=== PATIENT | male | born 1945 | race Caucasian/White ===

== ENCOUNTER 2019-04-04 10:30 | Outpatient (CLI) | payer MEDICARE ==
[~2019-04-04] VITALS: Ht 167.6 cm; Wt 102.3 kg
[2019-04-04 11:19] LABS: ANION GAP 7 mmol/L (5-15); CALCIUM 9.2 mg/dL (8.5-10.1); CHLORIDE 106 mmol/L (98-107); CREATININE 0.97 mg/dL (0.7-1.3)
[2019-04-04] MEDS ORDERED: CARV3.122 PO (11:34)
[2019-04-04] MEDS ORDERED: TAMS-11 PO (11:34)
[2019-04-04] MEDS ORDERED: METF500T17 PO (11:34)
[2019-04-04] MEDS ORDERED: RAMI5CAP57 PO (11:34)
[2019-04-04] MEDS ORDERED: VITA400C43 PO (11:34)
[2019-04-04] MEDS ORDERED: FURO20TA3 PO (11:34)
[2019-04-04] MEDS ORDERED: ALBU8.5H8 INH (11:34)
[2019-04-04] MEDS ORDERED: CHOL100011 PO (11:34)
[2019-04-04] MEDS ORDERED: EPIN11.7 INH (11:34)
[2019-04-04] MEDS ORDERED: ASPI-496 PO (11:34)
[2019-04-04] MEDS ORDERED: ATOR-2 PO (11:34)
[2019-04-04] MEDS ORDERED: FINA5TAB4 PO (11:34)
[2019-04-04] MEDS ORDERED: POTA10TA31 PO (11:34)
== END 2019-04-04 23:59 | disposition home or self-care (01) ==
LOC: STAR 10:30
PROVIDERS: ATTEND Internal Medicine Cardiovascular Disease
DX: R53.83 Other fatigue (principal); R06.00 Dyspnea, unspecified; J44.9 Chronic obstructive pulmonary disease, unspecified; E11.9 Type 2 diabetes mellitus without complications; Z88.0 Allergy status to penicillin; Z88.2 Allergy status to sulfonamides; Z87.891 Personal history of nicotine dependence
CPT/HCPCS: 36415; 80048